=== PATIENT | female | born 1940 | race Caucasian/White ===

== ENCOUNTER 2023-02-28 06:01 | Emergency (ER) | payer MEDICARE, OTHER ==
[~2023-02-28] VITALS: Ht 170.2 cm; Wt 66.4 kg
[~2023-02-28 06:01] MED LIST: AMLO5TAB16 PO; ASPI-1071 PO; CYAN250014; ERGO400C PO; GABA300C PO; HYDR12.55 PO; LISI10TA27 PO; RED RICE YEAST; TUMERIC; [UNRECOGNIZED DRUG - OTHER]
[2023-02-28 08:33] LABS: BASOPHILS % (AUTO) 0.5 % (0-1); EOSINOPHILS % (AUTO) 0.3 % (0-6); HEMATOCRIT 40.2 % (35.0-45.0); HEMOGLOBIN 13.5 g/dl (12.0-16.0); LYMPHOCYTES # (AUTO) 1.7 X10'3 (1.1-4.8); LYMPHOCYTES % (AUTO) 18.3 % (21-51); MEAN CORPUSCULAR HEMOGLOBIN 30.7 PG (27.0-31.0); MEAN CORPUSCULAR HGB CONC 33.6 g/dL (33.0-36.5); MEAN CORPUSCULAR VOLUME 91.4 FL (78-98); MEAN PLATELET VOLUME 7.9 FL (7.4-10.4); MONOCYTES # (AUTO) 0.7 X10'3 (0-0.9); MONOCYTES % (AUTO) 7.6 % (2-12); NEUTROPHILS # (AUTO) 6.9 X10'3 (1.8-7.7); NEUTROPHILS % (AUTO) 73.3 % (42-75); PLATELET COUNT 318 X10'3 (140-440); RED CELL DISTRIBUTION WIDTH 14.7 % (11.5-14.5); WHITE BLOOD COUNT 9.5 X10'3 (4.5-11.0)
[2023-02-28 08:43] LABS: ALANINE AMINOTRANSFERASE 22 U/L (12-78); ALBUMIN 3.8 G/DL (3.4-5.0); ALBUMIN/GLOBULIN RATIO 1.1 (1.1-1.5); ALKALINE PHOSPHATASE 51 IU/L (46-116); ANION GAP 9 (8-16); ASPARTATE AMINO TRANSFERASE 17 U/L (10-37); BILIRUBIN,TOTAL 0.5 MG/DL (0.1-1.0); BLOOD UREA NITROGEN 11 MG/DL (7-18); BUN/CREATININE RATIO 12.1 (10.0-20.0); CALCIUM 8.9 MG/DL (8.5-10.1); CHLORIDE 95 MMOL/L (99-107); CREATININE 0.91 MG/DL (0.40-0.90); GLUCOSE 103 MG/DL (70-104); POTASSIUM 4.1 MMOL/L (3.5-5.1); SODIUM 129 MMOL/L (135-145); TOTAL CARBON DIOXIDE 24.6 MMOL/L (24-32); TOTAL PROTEIN 7.2 G/DL (6.4-8.2); eCRCL 45 ML/MIN; eGFR 59 ML/MIN
[2023-02-28 08:55] LABS: BILIRUBIN,URINE NEGATIVE (Neg); CLARITY,URINE CLEAR (Clear); GLUCOSE, URINE NEGATIVE (Neg); KETONES,URINE NEGATIVE (Neg); LEUKOCYTE ESTERASE ,URINE NEGATIVE (Neg); NITRITES, URINE NEGATIVE (Neg); OCCULT BLOOD,URINE NEGATIVE (Neg); PH,URINE 6.5 (4.8-8.0); UROBILINOGEN,URINE 0.2 E.U/dL (0.2-1.0)
[2023-02-28 08:58] LABS: UA COLLECTION TYPE STRAIGHT CATH
[2023-02-28 09:00] LABS: PROTEIN,URINE NEGATIVE (Neg)
[2023-02-28] MEDS ORDERED: LORazepam 2 mg/ml vial IV ONE (09:55)
[2023-02-28 10:19] VITALS: BP 166/64; PULSE 72; RESP 18; TEMP 98.4; O2SAT 99
== END 2023-02-28 11:16 | disposition home or self-care (01) ==
LOC: ER 06:02
DX: F41.1 Generalized anxiety disorder (principal); Z79.899 Other long term (current) drug therapy; Z79.82 Long term (current) use of aspirin
CPT/HCPCS: 36415; 70450; 80053; 81003; 82948; 85025; 99284; C1758

== ENCOUNTER 2023-05-19 11:06 | Inpatient (IN) | payer MEDICARE, OTHER ==
[~2023-05-19] VITALS: Ht 170.2 cm; Wt 64.0 kg
[2023-05-19] MEDS ORDERED: morphine 4 MG/ML inj SYRINge IV ONE (11:35)
[2023-05-19] MEDS ORDERED: normal saline 1000ML IV soln IVB ONE (11:35)
[2023-05-19] MEDS ORDERED: ondansetron/PF 4mg/2ml inj IV ONE (11:35)
[2023-05-19 12:20] LABS: BASOPHILS % (AUTO) 0.2 % (0-1); EOSINOPHILS % (AUTO) 0.2 % (0-6); HEMATOCRIT 37.5 % (35.0-45.0); HEMOGLOBIN 13.1 g/dl (12.0-16.0); LYMPHOCYTES # (AUTO) 0.3 X10'3 (1.1-4.8); LYMPHOCYTES % (AUTO) 2.7 % (21-51); MEAN CORPUSCULAR HEMOGLOBIN 31.8 PG (27.0-31.0); MEAN CORPUSCULAR HGB CONC 34.9 g/dL (33.0-36.5); MEAN CORPUSCULAR VOLUME 90.9 FL (78-98); MEAN PLATELET VOLUME 7.7 FL (7.4-10.4); MONOCYTES # (AUTO) 0.6 X10'3 (0-0.9); MONOCYTES % (AUTO) 6.2 % (2-12); NEUTROPHILS # (AUTO) 8.8 X10'3 (1.8-7.7); NEUTROPHILS % (AUTO) 90.7 % (42-75); PLATELET COUNT 272 X10'3 (140-440); RED BLOOD COUNT 4.12 X10'6 (4.20-5.60); RED CELL DISTRIBUTION WIDTH 13.9 % (11.5-14.5); WHITE BLOOD COUNT 9.7 X10'3 (4.5-11.0)
[2023-05-19 12:37] LABS: ALANINE AMINOTRANSFERASE 26 U/L (12-78); ALBUMIN 3.7 G/DL (3.4-5.0); ALBUMIN/GLOBULIN RATIO 1.2 (1.1-1.5); ALKALINE PHOSPHATASE 77 IU/L (46-116); ANION GAP 11 (8-16); ASPARTATE AMINO TRANSFERASE 29 U/L (10-37); BILIRUBIN,TOTAL 0.4 MG/DL (0.1-1.0); BLOOD UREA NITROGEN 13 MG/DL (7-18); BUN/CREATININE RATIO 10.9 (10.0-20.0); CALCIUM 9.1 MG/DL (8.5-10.1); CHLORIDE 89 MMOL/L (99-107); CREATININE 1.19 MG/DL (0.40-0.90); GLUCOSE 139 MG/DL (70-104); LIPASE 62 U/L (16-77); POTASSIUM 4.2 MMOL/L (3.5-5.1); TOTAL PROTEIN 6.8 G/DL (6.4-8.2); eCRCL 34 ML/MIN; eGFR 43 ML/MIN
[2023-05-19 12:43] LABS: SODIUM 120 MMOL/L (135-145)
--- NOTE | 2023-05-19 12:54 | NUR ---
lab called with critical NA of 120. REYNALDO Briscoe notified.
[2023-05-19 13:34] LABS: BILIRUBIN,URINE NEGATIVE (Neg); CLARITY,URINE CLEAR (Clear); COLOR,URINE YELLOW (Yellow); GLUCOSE, URINE NEGATIVE (Neg); KETONES,URINE 15 mg/dl (Neg); LEUKOCYTE ESTERASE ,URINE NEGATIVE (Neg); NITRITES, URINE NEGATIVE (Neg); OCCULT BLOOD,URINE SMALL (Neg); PROTEIN,URINE NEGATIVE (Neg); UROBILINOGEN,URINE 0.2 E.U/dL (0.2-1.0)
[2023-05-19 13:42] LABS: UA COLLECTION TYPE STRAIGHT CATH
[2023-05-19 13:44] LABS: HYALINE CASTS 0-3 /LPF (NEGATIVE); MUCUS STRANDS FEW /LPF (Neg); SQUAMOUS EPITHELIAL CELL,UR FEW /LPF (FEW)
[2023-05-19 13:45] LABS: BACTERIA,URINE FEW /HPF (Neg); RBC,URINE 20-50 /HPF (0-2); WBC,URINE 0-4 /HPF (0-4)
[2023-05-19] MEDS ORDERED: CefTRIAXone 2gm/D5W 50ml BAG 50 ML IV ONE (14:20)
[2023-05-19] MEDS ORDERED: metroNIDAZOLE-Flagyl 500mg/NS 100 ML IV ONE (14:20)
[2023-05-19] MEDS ORDERED: bisacodyl 10mg suppository rectal RC PRN (15:25)
[2023-05-19] MEDS ORDERED: mag hydrox/Alum hydrox/simeth 30ml oral suspension PO PRN (15:25)
[2023-05-19] MEDS ORDERED: magnesium 4gm in 100ml NS 100 ML IV PRN (15:25)
[2023-05-19] MEDS ORDERED: magnesium 2GM in 50ml NS 50 ML IV PRN (15:25)
[2023-05-19] MEDS ORDERED: diphenhydrAMINE 25mg capsule PO PRN (15:25)
[2023-05-19] MEDS ORDERED: HYDROcodone/acetaminophen 10/325mg tab PO PRN (15:25)
[2023-05-19] MEDS ORDERED: ondansetron/PF 4mg/2ml inj IV PRN (15:25)
[2023-05-19] MEDS ORDERED: morphine 2 MG/ML inj. syringe IV PRN ×2 (15:25)
[2023-05-19] MEDS: normal saline 1000ml 1,000 ML IV SCH (15:25)
[2023-05-19] MEDS ORDERED: magnesium Cl slow-release 64mg tablet PO PRN (15:25)
[2023-05-19] MEDS ORDERED: magnesium hydroxide 30ml (MOM) UD suspension PO PRN (15:25)
[2023-05-19] MEDS ORDERED: acetaminophen 325mg tablet PO PRN ×2 (15:25)
[2023-05-19] MEDS ORDERED: potassium Cl 20 mEq SR tablet PO PRN ×2 (15:25)
[2023-05-19] MEDS ORDERED: HYDROcodone/acetaminophen 5mg/325mg tablet PO PRN (15:25)
[2023-05-19] MEDS ORDERED: potassium Cl 40MEQ/1/2NS 520ml 520 ML IV PRN (15:25)
[2023-05-19] MEDS ORDERED: acetaminophen 650mg rectal suppository RC PRN (15:25)
[2023-05-19] MEDS: metroNIDAZOLE-Flagyl 500mg/NS 100 ML IV SCH (16:00)
[2023-05-19] MEDS ORDERED: SINCALIDE IV ONE (16:10)
[2023-05-19] MEDS ORDERED: NORMAL SALINE IV ONE (16:10)
--- NOTE | 2023-05-19 17:02 | NUR ---
pt brought back to room 18, pt able to transfer self with min assist from wheelchair to bed, pt is waiting for bed assignment
[2023-05-19 17:24] LABS: HEMOGLOBIN A1C 5.3 % (4.5-6.2)
[2023-05-19] MEDS ORDERED: HYDR12.55 PO (17:32)
[2023-05-19] MEDS ORDERED: [UNRECOGNIZED DRUG - OTHER] (17:32)
[2023-05-19 18:36] LABS: ALBUMIN 3.2 G/DL (3.4-5.0); ANION GAP 8 (8-16); BLOOD UREA NITROGEN 9 MG/DL (7-18); CALCIUM 8.4 MG/DL (8.5-10.1); CHLORIDE 90 MMOL/L (99-107); GLUCOSE 110 MG/DL (70-104); POTASSIUM 3.9 MMOL/L (3.5-5.1); SODIUM 122 MMOL/L (135-145); THYROID STIMULATING HORMONE 0.61 ulU/ml (0.34-4.50); TOTAL CARBON DIOXIDE 24.1 MMOL/L (24-32); eCRCL 41 ML/MIN; eGFR 53 ML/MIN
[2023-05-19 18:42] LABS: OSMOLALITY 259 MOSM/K (280-300)
[2023-05-19] MEDS: K and/or MAG REPLACEMENT MC SCH (19:11)
[2023-05-19] MEDS: docusate sod 100mg capsule PO SCH (19:15)
[2023-05-19] MEDS: heparin, porcine 5000 units/ml vial SQ SCH (19:16)
[2023-05-20] MEDS: normal saline 1000ml 1,000 ML IV SCH ×2 (01:25→09:22)
--- NOTE | 2023-05-20 02:16 | NUR ---
Informed MD Rubio that the pt has not had any bouts of diarrhea, therefore the c-diff test is unable to be performed. Per MD do not cancel the c-diff order.
--- NOTE | 2023-05-20 05:22 | NUR ---
I have reviewed and agree with all interventions, assessments performed and documented by SUMI Torres.
--- NOTE | 2023-05-20 06:49 | NUR ---
pt vitals are stable pt states she just recently used the restrom and had a bowel movement sample was not collected, informed patient we need a sample for the lab
[2023-05-20] MEDS: K and/or MAG REPLACEMENT MC SCH (08:00)
[2023-05-20] MEDS: docusate sod 100mg capsule PO SCH ×2 (08:00→09:33)
[2023-05-20] MEDS ORDERED: CefTRIAXone/D5W-Rocephin 1gm 50 ML IV SCH (08:00)
--- NOTE | 2023-05-20 08:57 | NUR ---
Patient in room ED 18. I have received report from Adeline and had the opportunity to ask questions and assume patient care.
[2023-05-20 09:20] VITALS: BP 96/44; PULSE 78; RESP 16; TEMP 97.5
--- NOTE | 2023-05-20 09:23 | NUR ---
Received pt from ED via wheelchair. Pt ambulated unassisted to bed. Pt A&Ox4, denies pain at this time. Pt on room air. Oriented pt to room and call light.
[2023-05-20] MEDS: metroNIDAZOLE-Flagyl 500mg/NS 100 ML IV SCH ×2 (09:34)
[2023-05-20] MEDS: heparin, porcine 5000 units/ml vial SQ SCH (09:34)
[2023-05-20 10:00] VITALS: BP 106/38; PULSE 69; RESP 15; TEMP 97.9; O2SAT 96
[2023-05-20 12:03] LABS: OCCULT BLOOD STOOL NEGATIVE (Neg)
[2023-05-20 12:03] LABS: BASOPHILS % (AUTO) 0.1 % (0-1); EOSINOPHILS # (AUTO) 0.2 X10'3 (0-0.9); EOSINOPHILS % (AUTO) 3.6 % (0-6); HEMATOCRIT 32.9 % (35.0-45.0); LYMPHOCYTES # (AUTO) 0.8 X10'3 (1.1-4.8); LYMPHOCYTES % (AUTO) 13.3 % (21-51); MEAN CORPUSCULAR HEMOGLOBIN 30.7 PG (27.0-31.0); MEAN CORPUSCULAR HGB CONC 33.6 g/dL (33.0-36.5); MEAN CORPUSCULAR VOLUME 91.6 FL (78-98); MEAN PLATELET VOLUME 7.9 FL (7.4-10.4); MONOCYTES # (AUTO) 0.5 X10'3 (0-0.9); MONOCYTES % (AUTO) 7.5 % (2-12); NEUTROPHILS # (AUTO) 4.7 X10'3 (1.8-7.7); NEUTROPHILS % (AUTO) 75.5 % (42-75); PLATELET COUNT 246 X10'3 (140-440); RED BLOOD COUNT 3.59 X10'6 (4.20-5.60); RED CELL DISTRIBUTION WIDTH 13.8 % (11.5-14.5); WHITE BLOOD COUNT 6.2 X10'3 (4.5-11.0)
[2023-05-20 12:15] LABS: ALANINE AMINOTRANSFERASE 19 U/L (12-78); ALBUMIN 2.5 G/DL (3.4-5.0); ALBUMIN/GLOBULIN RATIO 0.9 (1.1-1.5); ALKALINE PHOSPHATASE 52 IU/L (46-116); ANION GAP 5 (8-16); ASPARTATE AMINO TRANSFERASE 23 U/L (10-37); BILIRUBIN,TOTAL 0.1 MG/DL (0.1-1.0); BLOOD UREA NITROGEN 12 MG/DL (7-18); BUN/CREATININE RATIO 13.5 (10.0-20.0); CHLORIDE 95 MMOL/L (99-107); CHOL/HDL RATIO 2.2 (0.00-4.99); CHOLESTEROL 159 MG/DL (0-200); CREATININE 0.89 MG/DL (0.40-0.90); GLUCOSE 98 MG/DL (70-104); HDL CHOLESTEROL 73 MG/DL (35-60); LDL CHOLESTEROL 67 MG/DL (50-100); MAGNESIUM 1.9 MG/DL (1.5-2.4); PHOSPHORUS 2.4 MG/DL (2.3-4.5); POTASSIUM 4.2 MMOL/L (3.5-5.1); SODIUM 125 MMOL/L (135-145); TOTAL PROTEIN 5.2 G/DL (6.4-8.2); TRIGLYCERIDES 85 MG/DL (20-135); eCRCL 46 ML/MIN; eGFR 60 ML/MIN
== END 2023-05-20 14:30 | disposition home or self-care (01) | DRG 683 ==
LOC: ER 11:07 → ED HOLD 15:27 → ORTHO 4S 05-20 09:05
PROVIDERS: ADMIT Family Medicine; ATTEND Family Medicine
DX: N17.9 Acute kidney failure, unspecified (principal); E87.1 Hypo-osmolality and hyponatremia; K80.20 Calculus of gallbladder without cholecystitis without obstruction; N13.30 Unspecified hydronephrosis; R19.7 Diarrhea, unspecified; I10 Essential (primary) hypertension; Z66 Do not resuscitate; Z79.82 Long term (current) use of aspirin; Z79.899 Other long term (current) drug therapy
CPT/HCPCS: 36415; 74176; 76700; 78227; 80048; 80053; 80061; 81001; 82272; 83036; 83605; 83690; 83735; 83930; 84100; 84145; 84443; 85025; 87040; 87045; 87046; 87081; 89055; 99285; A4314; A4358; A5200; A9537; C1758; G0378; J0696; J1644; J2405; J2805; J3490; J7030